=== PATIENT | female | born 1990 ===

== ENCOUNTER 2017-09-12 16:56 | Emergency (ER) | payer OTHER ==
[2017-09-12 16:56] VITALS: BMI 23.4
[2017-09-12 17:06] VITALS: BP 110/77; PULSE 110; RESP 17; TEMP 98.2; O2SAT 96
--- NOTE | 2017-09-12 19:43 | ED PDOC ---
Lower Extremity Pain/Injury Time Seen by Provider: 09/12/17 17:11 Chief Complaint (Nursing): Lower Extremity Problem/Injury Chief Complaint (Provider): Right ankle pain, s/p fall History Per: Patient History/Exam Limitations: no limitations Onset/Duration Of Symptoms: Mins, Hrs Current Symptoms Are (Timing): Still Present Severity: Moderate Pain Scale Rating Of: 5 Additional Complaint(s): Pt is 12 weeks and was going up stairs which she reports as being uneven when she tripped and twisted her right ankle. Pt took tylenol for pain. Pt reports localized pain to the lateral ankle. Mild swelling. No numbness/ tingling. Past Medical History Reviewed: Historical Data, Nursing Documentation, Vital Signs Vital Signs: Last Vital Signs Temp 98.2 F 09/12/17 17:04 Pulse 110 H 09/12/17 17:04 Resp 17 09/12/17 17:04 BP 110/77 09/12/17 17:04 Pulse Ox 96 09/12/17 17:04 - Medical History PMH: Asthma, GERD - Surgical History Surgical History: Appendectomy, - Family History Family History: States: Unknown Family Hx - Living Arrangements Living Arrangements: With Family - Social History Current smoker - smoking cessation education provided: No Alcohol: None - Immunization History Hx Influenza Vaccination: No Hx Pneumococcal Vaccination: No - Home Medications Home Medications: Ambulatory Orders Medication Instructions Recorded No Known Home Med 09/12/17 - Allergies Allergies/Adverse Reactions: Allergies Allergy/AdvReac Type Severity Reaction Status Date / Time [place] And Derivatives Allergy mouth pain Verified 01/26/16 10:27 Review of Systems ROS Statement: Except As Marked, All Systems Reviewed And Found Negative Constitutional: Negative for: Fever, Chills Musculoskeletal: Positive for: Leg Pain Physical Exam - Reviewed Nursing Documentation Reviewed: Yes Vital Signs Reviewed: Yes - Physical Exam Appears: Positive for: Well, Non-toxic, No Acute Distress Head Exam: Positive for: ATRAUMATIC, NORMAL INSPECTION, NORMOCEPHALIC Skin: Positive for: Normal Color (No ecchymosis ), Warm Eye Exam: Positive for: Normal appearance ENT: Positive for: Normal ENT Inspection Neck: Positive for: Normal, Painless ROM Respiratory: Negative for: Accessory Muscle Use, Respiratory Distress Back: Positive for: Normal Inspection Extremity: Positive for: Normal ROM, Tenderness (Right lateral malleolous ) Neurologic/Psych: Positive for: Alert, Oriented - ECG O2 Sat by Pulse Oximetry: 96 Medical Decision Making Medical Decision Making: Discussed radiation exposure to fetus and draping for protection with patient. x-ray without acute fracture or dislocation. Disposition - Clinical Impression Clinical Impression: Ankle sprain - Patient ED Disposition Is Patient to be Admitted: No Counseled Patient/Family Regarding: Diagnosis, Need For Followup - Disposition Disposition: Routine/Home Disposition Time: 19:44 Condition: GOOD Additional Instructions: Ice, elevation, tylenol for pain. Instructions: Ankle Sprain (ED)
--- NOTE | 2017-09-13 09:20 | RAD ---
PROCEDURE: Right Ankle Radiographs. HISTORY: right lateral malleolous pain COMPARISON: None FINDINGS: BONES: No fracture. JOINTS: Ankle mortise maintained. Talar dome intact SOFT TISSUES: Normal. OTHER FINDINGS: None. IMPRESSION: No demonstrated fracture or dislocation.
== END 2017-09-12 20:06 | disposition home or self-care (01) ==
LOC: H.ER 16:56
DX: S93.401A Sprain of unspecified ligament of right ankle, initial encounter (principal); X50.9XXA Other and unspecified overexertion or strenuous movements or postures, initial encounter; Y92.480 Sidewalk as the place of occurrence of the external cause; J45.909 Unspecified asthma, uncomplicated; K21.9 Gastro-esophageal reflux disease without esophagitis

== ENCOUNTER 2018-02-27 09:43 | Emergency (ER) | payer MEDICAID, OTHER ==
[2018-02-27 09:57] VITALS: BP 119/82; TEMP 99.3; O2SAT 97
[2018-02-27 10:02] VITALS: RESP 19
[2018-02-27] MEDS ORDERED: Albuterol-Ipratrop 3 mg / 0.5 (3 ml) UD IH STA (10:19)
--- NOTE | 2018-02-27 10:21 | ED PDOC ---
HPI: CCC, URI, Sore Throat Time Seen by Provider: 02/27/18 10:04 Chief Complaint (Nursing): ENT Problem History Per: Patient Onset/Duration Of Symptoms: Days (2) Current Symptoms Are (Timing): Still Present Location Of Pain: Throat Associated Symptoms: Cough. denies: Fever Severity: Mild Additional Complaint(s): Nonproductive cough assoc with sore throat x 2 days. denies fever. Chest pain when coughing. No SOB Past Medical History Vital Signs: Last Vital Signs Temp 99.3 F 02/27/18 09:56 Pulse 94 H 02/27/18 09:56 Resp 19 02/27/18 10:00 BP 119/82 02/27/18 09:56 Pulse Ox 97 02/27/18 10:21 - Medical History PMH: Asthma, GERD - Surgical History Surgical History: Appendectomy, - Family History Family History: States: Unknown Family Hx - Immunization History Hx Influenza Vaccination: No Hx Pneumococcal Vaccination: No - Home Medications Home Medications: Ambulatory Orders Medication Instructions Recorded Albuterol HFA [Ventolin HFA 90 2 puff IH Q4H #1 puff 02/27/18 mcg/actuation (8 g)] Azithromycin [Zithromax] 250 mg PO DAILY #6 tab 02/27/18 - Allergies Allergies/Adverse Reactions: Allergies Allergy/AdvReac Type Severity Reaction Status Date / Time [place] And Derivatives Allergy mouth pain Verified 02/27/18 10:00 Review of Systems Constitutional: Negative for: Fever ENT: Positive for: Throat Pain Respiratory: Positive for: Cough, Pleuritic Pain Physical Exam - Physical Exam Appears: Positive for: Non-toxic, No Acute Distress Skin: Positive for: Normal Color, Warm, DRY ENT: Positive for: Pharyngeal Erythema. Negative for: Tonsillar Exudate Neck: Positive for: Normal, Painless ROM Cardiovascular/Chest: Positive for: Regular Rate, Rhythm Respiratory: Positive for: Wheezing. Negative for: Respiratory Distress - ECG O2 Sat by Pulse Oximetry: 97 Disposition - Clinical Impression Clinical Impression: URI (upper respiratory infection) - Patient ED Disposition Is Patient to be Admitted: No Counseled Patient/Family Regarding: Diagnosis - Disposition Referrals: [facility] [place] [Outside] Disposition: Routine/Home Disposition Time: 11:15 Condition: FAIR Prescriptions: Albuterol HFA [Ventolin HFA 90 mcg/actuation (8 g)] 2 puff IH Q4H #1 puff Azithromycin [Zithromax] 250 mg PO DAILY #6 tab Instructions: Bacterial Upper Respiratory Infection, Adult Forms: [facility] ([place])
[2018-02-27] MEDS ORDERED: Albuterol-Ipratrop 3 mg / 0.5 (3 ml) UD ONE (10:29)
[2018-02-27 11:29] VITALS: PULSE 79
== END 2018-02-27 11:28 | disposition home or self-care (01) ==
LOC: H.ER 09:43
DX: J06.9 Acute upper respiratory infection, unspecified (principal); J45.909 Unspecified asthma, uncomplicated; K21.9 Gastro-esophageal reflux disease without esophagitis